=== PATIENT | female | born 1990 | race Caucasian/White ===

== ENCOUNTER 2017-01-26 10:05 | Emergency (ER) | payer OTHER, MEDICAID ==
[2017-01-26 10:45] VITALS: BP 111/74
--- NOTE | 2017-01-26 11:26 | EDM.PDOC ---
ED HPI GENERAL MEDICAL PROBLEM - General Chief Complaint: General Stated Complaint: CAN'T KEEP ANYTHING DOWN/PRESSURE IN HEAD Time Seen by Provider: 01/26/17 11:21 Source of Information: Reports: Patient History Limitations: Reports: No Limitations - History of Present Illness INITIAL COMMENTS - FREE TEXT/NARRATIVE: Hx of migraines. Has had several CT scans in the past. Was going to ER monthly for migraine. No pattern. Started with headache on at 2pm. Took Hydrocodone that night. Has been taking her Amitryptiline routinely. Started it in September. LMP yesterday. Vomiting since Friday. Did vomit this morning. Last ate lunch on Friday. Not taking in much fluid.Rates headache an 8 at this time. Onset: Gradual Onset Date: 01/23/17 Onset Time: 14:00 Duration: Recurring Location: Reports: Head Quality: Reports: Stabbing Severity: Severe (8) Improves with: Reports: None Worsens with: Reports: Other (light, smells) Associated Symptoms: Reports: Headaches, Nausea/Vomiting - Related Data Allergies Allergy/AdvReac Type Severity Reaction Status Date / Time diphenhydramine Allergy Tachycardia Verified 01/26/17 11:06 [From Benadryl] Home Meds: Home Meds Amitriptyline [Elavil] 01/26/17 [History] Hydrocodone/Acetaminophen [Vicodin 5-300 mg Tablet] 01/26/17 [History] Ondansetron [Zofran ODT] 01/26/17 [History] Rizatriptan [Maxalt GARMENT ALTERATION EXAMINER] 01/26/17 [History] SUMAtriptan Succinate [Imitrex] 01/26/17 [History] SUMAtriptan [Imitrex Nasal] 01/26/17 [History] Past Medical History Genitourinary History: Reports: Renal Calculus Neurological History: Reports: Migraines Social & Family History - Tobacco Use Smoking Status *Q: Never Smoker ED ROS GENERAL - Review of Systems Review Of Systems: See Below Constitutional: Reports: Chills, Fatigue HEENT: Reports: No Symptoms Respiratory: Reports: No Symptoms Cardiovascular: Reports: No Symptoms : Reports: No Symptoms, Other (LMP yesterday) Musculoskeletal: Reports: Neck Pain Skin: Reports: No Symptoms Neurological: Reports: Headache, Other (no aura this time) Psychiatric: Reports: No Symptoms ED EXAM, GENERAL - Physical Exam Exam: See Below Exam Limited By: No Limitations General Appearance: Moderate Distress (lights off in the room) Ears: Normal External Exam, Normal Canal, Hearing Grossly Normal, Normal TMs Ear Exam: Bilateral Ear: Auricle Normal, Canal Normal, TM normal Nose: Normal Inspection, Normal Mucosa, No Blood Throat/Mouth: Normal Inspection, Normal Lips, Normal Teeth, Normal Gums, Normal Oropharynx, Normal Voice, No Airway Compromise Head: Atraumatic, Normocephalic Neck: Normal Inspection, Supple, Non-Tender, Full Range of Motion Respiratory/Chest: No Respiratory Distress, Lungs Clear, Normal Breath Sounds, No Accessory Muscle Use, Chest Non-Tender Cardiovascular: Normal Peripheral Pulses, Regular Rate, Rhythm, No Edema, No Gallop, No JVD, No Murmur, No Rub GI/Abdominal: Normal Bowel Sounds, Soft, Non-Tender, No Organomegaly, No Distention, No Abnormal Bruit, No Mass Extremities: Normal Inspection, Normal Range of Motion, Non-Tender, Normal Capillary Refill, No Pedal Edema Neurological: Alert, Oriented, CN II-XII Intact, Normal Cognition, Normal Gait, Normal Reflexes, No Motor/Sensory Deficits, Other (photofobia) Psychiatric: Normal Affect, Normal Mood Skin Exam: Warm, Dry, Intact, Normal Color, No Rash Course - Vital Signs Last Recorded V/S: Last Vital Signs Temp 96.8 F 01/26/17 11:16 Pulse 77 01/26/17 11:16 Resp 16 01/26/17 11:16 BP 111/74 01/26/17 11:16 Pulse Ox 100 01/26/17 11:16 - Orders/Labs/Meds Orders: Active Orders 24 hr Category Date Time Status Sodium Chloride 0.9% [Normal Saline] 1,000 ml Med 01/26/17 11:45 Active IV .BOLUS Sodium Chloride 0.9% [Normal Saline] 1,000 ml Med 01/26/17 12:42 Active IV .BOLUS Medication Orders Sodium Chloride (Normal Saline) 1,000 mls @ 500 mls/hr IV .BOLUS AL Last Admin: 01/26/17 11:57 Dose: 500 mls/hr Sodium Chloride (Normal Saline) 1,000 mls @ 500 drops/hr IV .BOLUS ONE Stop: 01/27/17 18:41 Last Admin: 01/26/17 12:52 Dose: 500 drops/hr Meds: Medications Generic Name Dose Route Start Last Admin Trade Name Freq PRN Reason Stop Dose Admin Sodium Chloride 1,000 mls @ 500 mls/hr 01/26/17 11:45 01/26/17 11:57 Normal Saline IV 500 mls/hr .BOLUS AL Administration Sodium Chloride 1,000 mls @ 500 drops/hr 01/26/17 12:42 01/26/17 12:52 Normal Saline IV 01/27/17 18:41 500 drops/hr .BOLUS ONE Administration Discontinued Medications Generic Name Dose Route Start Last Admin Trade Name Freq PRN Reason Stop Dose Admin Hydromorphone HCl 0.5 mg 01/26/17 12:18 01/26/17 12:38 Dilaudid IVPUSH 01/26/17 12:19 0.5 mg ONETIME ONE Administration Hydromorphone HCl 0.5 mg 01/26/17 13:19 01/26/17 13:36 Dilaudid IVPUSH 01/26/17 13:20 0.5 mg ONETIME ONE Administration Hydromorphone HCl 1 mg 01/26/17 14:24 01/26/17 14:41 Dilaudid IVPUSH 01/26/17 14:25 1 mg ONETIME ONE Administration Hydroxyzine HCl 100 mg 01/26/17 14:25 01/26/17 14:40 Vistaril IM 01/26/17 14:26 100 mg ONETIME ONE Administration Ketorolac Tromethamine 30 mg 01/26/17 11:35 01/26/17 11:58 Toradol IVPUSH 01/26/17 11:36 30 mg ONETIME ONE Administration Ondansetron HCl 4 mg 01/26/17 11:35 01/26/17 11:58 Zofran IVPUSH 01/26/17 11:36 4 mg ONETIME ONE Administration Departure - Departure Time of Disposition: 15:00 Disposition: Home, Self-Care 01 Clinical Impression: Migraine aura, persistent Qualifiers: Status migrainosus presence: with status migrainosus Intractability: intractable Qualified Code(s): G43.511 - Persistent migraine aura without cerebral infarction, intractable, with status migrainosus - Discharge Information Referrals: PCP,None [Primary Care Provider] - Forms: ED Department Discharge Additional Instructions: IV NS 1000ml infused x2. Zofran 4mg IV given. Toradol 30mg IV given with little improvement in headache. Dilaudid 0.5mg IV given x2. Vistaril 100mg and final dose of Dilaudid 0.5mg finally seem to break the headache cycle. Pt to return home and resume her home meds. Increase fluids. Discussed treating all headaches at onset of symptoms. Followup with primary care if recurring headaches. - Problem List & Annotations (1) Migraine aura, persistent SNOMED Code(s): 188317808 Code(s): G43.509 - PERST MIGRN AURA W/O CEREB INFRC, NOT NTRCT, W/O STAT MIGR Status: Acute Priority: Medium Current Visit: Yes Qualifiers: Status migrainosus presence: with status migrainosus Intractability: intractable Qualified Code(s): G43.511 - Persistent migraine aura without cerebral infarction, intractable, with status migrainosus - My Orders Last 24 Hours: My Active Orders 01/26/17 11:45 Sodium Chloride 0.9% [Normal Saline] 1,000 ml IV .BOLUS 01/26/17 12:42 Sodium Chloride 0.9% [Normal Saline] 1,000 ml IV .BOLUS - Assessment/Plan Last 24 Hours: My Active Orders 01/26/17 11:45 Sodium Chloride 0.9% [Normal Saline] 1,000 ml IV .BOLUS 01/26/17 12:42 Sodium Chloride 0.9% [Normal Saline] 1,000 ml IV .BOLUS
[2017-01-26] MEDS ORDERED: Ondansetron 4 MG/2 ML SDV IVPUSH ONE (11:35)
[2017-01-26] MEDS ORDERED: Ketorolac 30 MG/ML SDV IVPUSH ONE (11:35)
[2017-01-26] MEDS ORDERED: Sodium Chloride 0.9% 1,000 ML IV SCH (11:45)
[2017-01-26] MEDS ORDERED: HYDROmorphone 0.5 MG/0.5 ML Syringe IVPUSH ONE ×2 (12:18→13:19)
[2017-01-26] MEDS ORDERED: Sodium Chloride 0.9% 1,000 ML IV ONE (12:42)
[2017-01-26] MEDS ORDERED: HYDROmorphone 1 MG/ML Syringe IVPUSH ONE (14:24)
[2017-01-26] MEDS ORDERED: hydrOXYzine HCl 100 MG/2 ML SDV IM ONE (14:25)
== END 2017-01-26 16:12 | disposition home or self-care (01) ==
LOC: JP.ED 10:05
DX: G43.511 Persistent migraine aura without cerebral infarction, intractable, with status migrainosus (principal); Z79.899 Other long term (current) drug therapy; Z88.8 Allergy status to other drugs, medicaments and biological substances
CPT/HCPCS: 96361; 96374; 96375; 96376; 99283; J1170; J1885; J2405; J3410; J7040

== ENCOUNTER 2017-03-08 14:18 | Emergency (ER) | payer OTHER, MEDICAID ==
[2017-03-08] MEDS ORDERED: Ibuprofen 600 MG Tab PO ONE (15:15)
[2017-03-08] MEDS ORDERED: Acetaminophen/HYDROcodone 325-5 MG Tab PO ONE (15:15)
[2017-03-08] MEDS ORDERED: LORazepam 2 MG/ML MDV IVPUSH ONE (17:39)
[2017-03-08] MEDS: Dexamethasone 4 MG/ML SDV IVPUSH ONE ×2 (17:48→17:53)
[2017-03-08] MEDS ORDERED: Sodium Chloride 0.9% 10 ML Syringe FLUSH PRN (17:57)
[2017-03-08] MEDS ORDERED: Sodium Chloride 0.9% 1,000 ML IV SCH (18:00)
--- NOTE | 2017-03-08 19:36 | EDM.PDOC ---
ED HPI GENERAL MEDICAL PROBLEM - General Chief Complaint: Abdominal Pain Stated Complaint: ABDOMINAL PAIN Time Seen by Provider: 03/08/17 15:00 Source of Information: Reports: Patient History Limitations: Reports: No Limitations - History of Present Illness INITIAL COMMENTS - FREE TEXT/NARRATIVE: Eri is a 18-year-old female with a history of migraine headaches who presents to the emergency department today with sudden onset of left pelvic pain. Patient has not taken anything for the pain, she reports mild discomfort with urination. Patient denies any vaginal discharge or concern for STDs. Patient denies any history of pain like this in the past, she does endorse a history of kidney stones which she has never passed one. Patient denies any history of ovarian cysts. She reports that walking around helps to ease the pain or take her mind off of it. Patient does endorse mild nausea, she denies any vomiting or diarrhea. Patient denies any hematochezia. Patient states her last menstrual cycle was last week. Onset: Today, Sudden Left Pelvic Pain Score (Numeric/FACES): 2 - Related Data Allergies Allergy/AdvReac Type Severity Reaction Status Date / Time diphenhydramine Allergy Tachycardia Verified 03/08/17 14:43 [From Benadryl] Home Meds: Home Meds Amitriptyline [Elavil] 25 mg PO BEDTIME 01/26/17 [History] Hydrocodone/Acetaminophen [Vicodin 5-300 mg Tablet] 1 tab PO ASDIRECTED PRN [History] Ondansetron [Zofran ODT] 4 mg PO ASDIRECTED PRN 01/26/17 [History] Rizatriptan [Maxalt PATHOLOGY TEACHER] 10 mg BUCCAL ASDIRECTED PRN 01/26/17 [History] SUMAtriptan Succinate [Imitrex] 100 mg PO ASDIRECTED PRN 01/26/17 [History] SUMAtriptan [Imitrex Nasal] 20 mg NASRT ASDIRECTED PRN 01/26/17 [History] Ketorolac [Toradol] 10 mg PO ASDIRECTED 03/08/17 [History] Past Medical History Genitourinary History: Reports: Renal Calculus MOTHER HELPER History: Reports: Neurological History: Reports: Migraines Social & Family History - Tobacco Use Smoking Status *Q: Never Smoker - Caffeine Use Caffeine Use: Reports: Energy Drinks - Recreational Drug Use Recreational Drug Use: No ED ROS GENERAL - Review of Systems Review Of Systems: ROS reveals no pertinent complaints other than HPI. ED EXAM, GI/ABD - Physical Exam Exam: See Below Exam Limited By: No Limitations General Appearance: Alert, WD/WN, Anxious, Mild Distress Throat/Mouth: Normal Inspection, Normal Oropharynx Head: Atraumatic Neck: Normal Inspection Respiratory/Chest: No Respiratory Distress, Lungs Clear, Normal Breath Sounds Cardiovascular: Normal Peripheral Pulses, No Murmur, Tachycardia GI/Abdominal Exam: Normal Bowel Sounds, Soft, Other (left pelvic tenderness) (Female) Exam: Other (no CVA tenderness on exam) Back Exam: Normal Inspection Extremities: Normal Inspection Neurological: Alert, Oriented, CN II-XII Intact Psychiatric: Normal Affect, Anxious Skin Exam: Warm, Dry, Intact Course - Vital Signs Last Recorded V/S: Last Vital Signs Temp 36.5 C 03/08/17 19:15 Pulse 92 03/08/17 19:15 Resp 16 03/08/17 19:15 BP 115/76 03/08/17 19:15 Pulse Ox 98 03/08/17 19:15 Eri is a 26-year-old female sitting on the bed in mild distress secondary to left pelvic pain. Patient is tender on exam, please refer to history of present illness and focused exam. Concerns for ovarian cyst versus torsion versus ureteral stone. Less likely would be diverticulitis. Blood work was obtained, patient was given ibuprofen and [place] for pain with improvement in her symptoms.urinalysis was obtained, this is negative for infection, test is negative. Blood work reveals a normal white count and hemoglobin, comprehensive metabolic panel is unremarkable. Pelvic ultrasound was obtained which is negative for torsion or cyst or any other acute findings per technical assoc report. CT scan was ordered to rule out ureteral stone, prior to going to CT scan, patient developed unilateral numbness/tingling in her face , right arm and leg as well as symptoms consistent with an anxiety attack included tachypnea and tachycardia. Patient developed an acute migraine headache at that time as well. Peripheral IV was established, patient was given a liter of normal saline and 1 mg of Ativan with 10 of Decadron with vast improvement in her symptoms. CT scan was obtained and is negative for any acute findings other than trace free fluid in patient's pelvis. Headache is currently a 3 out of 10, I will give her 1 dose of Dilaudid prior to discharge but feels she is stable to be discharged home with close follow-up. Patient can take ibuprofen scheduled, 600 mg, every 6 hours for her pelvic pain. I would like her seen in clinic early this next week and reasons to return to the emergency department were discussed in detail. Given the free fluid in the pelvis, patient may have had a recent ruptured cyst that is causing her discomfort today. Patient was discharged in stable condition with her friend driving. - Orders/Labs/Meds Orders: Active Orders 24 hr Category Date Time Status Peripheral IV Care [RC] . DIRECTED Care 03/08/17 17:57 Active Abdomen Pelvis wo Cont [CT] Stat Exams 03/08/17 16:31 Taken Pelvis Non OB Comp [US] Stat Exams 03/08/17 15:15 Taken Sodium Chloride 0.9% [Normal Saline] 1,000 ml Med 03/08/17 18:00 Active IV ASDIRECTED Sodium Chloride 0.9% [Saline Flush] Med 03/08/17 17:57 Active 10 ml FLUSH ASDIRECTED PRN Peripheral IV Insertion Adult [OM.PC] Routine Oth 03/08/17 17:57 Ordered Medication Orders Sodium Chloride (Normal Saline) 1,000 mls @ 999 mls/hr IV ASDIRECTED AL Sodium Chloride (Saline Flush) 10 ml FLUSH ASDIRECTED PRN PRN Reason: Keep Vein Open Labs: Laboratory Tests 03/08/17 03/08/17 03/08/17 Range/Units 15:17 15:17 15:25 WBC 8.1 (4.5-11.0) K/uL RBC 4.30 (3.30-5.50) M/uL Hgb 13.2 (12.0-15.0) g/dL Hct 39.4 (36.0-48.0) % MCV 92 (80-98) fL MCH 31 (27-31) pg MCHC 34 (32-36) % Plt Count 280 (150-400) K/uL Neut % (Auto) 66 (36-66) % Lymph % (Auto) 25 (24-44) % [place] % (Auto) 8 H (2-6) % Eos % (Auto) 1 L (2-4) % Baso % (Auto) 1 (0-1) % Sodium (140-148) mmol/L Potassium (3.6-5.2) mmol/L Chloride (100-108) mmol/L Carbon Dioxide (21-32) mmol/L Anion Gap (5.0-14.0) mmol/L BUN (7-18) mg/dL Creatinine (0.6-1.0) mg/dL Est Cr Clr Drug Dosing mL/min Estimated GFR (MDRD) (>60) Glucose (74-106) mg/dL Calcium (8.5-10.1) mg/dL Total Bilirubin (0.2-1.0) mg/dL AST (15-37) U/L ALT (12-78) U/L Alkaline Phosphatase (46-116) U/L Total Protein (6.4-8.2) g/dL Albumin (3.4-5.0) g/dL Globulin (2.3-3.5) g/dL Albumin/Globulin Ratio (1.2-2.2) Urine Color Yellow Urine Appearance Clear Urine pH 5.0 (4.5-8.0) Ur Specific [place] 1.025 (1.008-1.030) Urine Protein Negative (NEGATIVE) mg/dL Urine Glucose (UA) Normal (NEGATIVE) mg/dL Urine Ketones Negative (NEGATIVE) mg/dL Urine Occult Blood Negative (NEGATIVE) Urine Nitrite Negative (NEGATIVE) Urine Bilirubin Negative (NEGATIVE) Urine Urobilinogen Normal (NORMAL) mg/dL Ur Leukocyte Esterase Negative (NEGATIVE) Urine RBC Not seen (0-5) Urine WBC 0-5 (0-5) Ur Epithelial Cells Moderate Amorphous Sediment Not seen Urine Bacteria Moderate Urine Mucus Not seen Urine HCG, Qual Negative 03/08/17 Range/Units 15:25 WBC (4.5-11.0) K/uL RBC (3.30-5.50) M/uL Hgb (12.0-15.0) g/dL Hct (36.0-48.0) % MCV (80-98) fL MCH (27-31) pg MCHC (32-36) % Plt Count (150-400) K/uL Neut % (Auto) (36-66) % Lymph % (Auto) (24-44) % [place] % (Auto) (2-6) % Eos % (Auto) (2-4) % Baso % (Auto) (0-1) % Sodium 142 (140-148) mmol/L Potassium 3.9 (3.6-5.2) mmol/L Chloride 103 (100-108) mmol/L Carbon Dioxide 27 (21-32) mmol/L Anion Gap 11.6 (5.0-14.0) mmol/L BUN 13 (7-18) mg/dL Creatinine 0.8 (0.6-1.0) mg/dL Est Cr Clr Drug Dosing 101.81 mL/min Estimated GFR (MDRD) > 60 (>60) Glucose 91 (74-106) mg/dL Calcium 8.6 (8.5-10.1) mg/dL Total Bilirubin 0.4 (0.2-1.0) mg/dL AST 13 L (15-37) U/L ALT 19 (12-78) U/L Alkaline Phosphatase 61 (46-116) U/L Total Protein 6.7 (6.4-8.2) g/dL Albumin 3.9 (3.4-5.0) g/dL Globulin 2.8 (2.3-3.5) g/dL Albumin/Globulin Ratio 1.4 (1.2-2.2) Urine Color Urine Appearance Urine pH (4.5-8.0) Ur Specific [place] (1.008-1.030) Urine Protein (NEGATIVE) mg/dL Urine Glucose (UA) (NEGATIVE) mg/dL Urine Ketones (NEGATIVE) mg/dL Urine Occult Blood (NEGATIVE) Urine Nitrite (NEGATIVE) Urine Bilirubin (NEGATIVE) Urine Urobilinogen (NORMAL) mg/dL Ur Leukocyte Esterase (NEGATIVE) Urine RBC (0-5) Urine WBC (0-5) Ur Epithelial Cells Amorphous Sediment Urine Bacteria Urine Mucus Urine HCG, Qual Meds: Medications Generic Name Dose Route Start Last Admin Trade Name Freq PRN Reason Stop Dose Admin Sodium Chloride 1,000 mls @ 999 mls/hr 03/08/17 18:00 Normal Saline IV ASDIRECTED AL Sodium Chloride 10 ml 03/08/17 17:57 Saline Flush FLUSH ASDIRECTED PRN Keep Vein Open Discontinued Medications Generic Name Dose Route Start Last Admin Trade Name Freq PRN Reason Stop Dose Admin Hydrocodone Bitart/Acetaminophen 1 tab 03/08/17 15:15 03/08/17 16:27 [place] 325-5 Mg PO 09/30/17 15:16 1 tab ONETIME ONE Administration Dexamethasone 10 mg 03/08/17 17:40 03/08/17 17:53 Dexamethasone IVPUSH 03/08/17 17:41 10 mg ONETIME ONE Administration Ibuprofen 600 mg 03/08/17 15:15 03/08/17 16:28 Motrin PO 03/08/17 15:16 600 mg ONETIME ONE Administration Lorazepam 1 mg 03/08/17 17:39 03/08/17 17:48 Ativan IVPUSH 03/08/17 17:40 1 mg ONETIME ONE Administration Departure - Departure Time of Disposition: 20:00 Disposition: Home, Self-Care 01 Condition: Good Clinical Impression: Pelvic pain, Free fluid in pelvis - Discharge Information Instructions: Pelvic Pain, Female, [id number] Referrals: PCP,None [Primary Care Provider] - Forms: ED Department Discharge Additional Instructions: Eri, please stay well-hydrated. I would like you to take ibuprofen scheduled, 600 mg, every 6 hours for the next 2 days. I would like you to follow up with her primary care provider early this next week. If you develop any worsening symptoms or concerns please return to the emergency department. - My Orders Last 24 Hours: My Active Orders 03/08/17 15:15 Pelvis Non OB Comp [US] Stat 03/08/17 16:31 Abdomen Pelvis wo Cont [CT] Stat 03/08/17 17:57 Peripheral IV Care [RC] . DIRECTED Sodium Chloride 0.9% [Saline Flush] 10 ml FLUSH ASDIRECTED PRN Peripheral IV Insertion Adult [OM.PC] Routine 03/08/17 18:00 Sodium Chloride 0.9% [Normal Saline] 1,000 ml IV ASDIRECTED - Assessment/Plan Last 24 Hours: My Active Orders 03/08/17 15:15 Pelvis Non OB Comp [US] Stat 03/08/17 16:31 Abdomen Pelvis wo Cont [CT] Stat 03/08/17 17:57 Peripheral IV Care [RC] . DIRECTED Sodium Chloride 0.9% [Saline Flush] 10 ml FLUSH ASDIRECTED PRN Peripheral IV Insertion Adult [OM.PC] Routine 03/08/17 18:00 Sodium Chloride 0.9% [Normal Saline] 1,000 ml IV ASDIRECTED
[2017-03-08] MEDS ORDERED: HYDROmorphone 0.5 MG/0.5 ML Syringe IVPUSH ONE (19:39)
[2017-03-08 19:53] VITALS: BP 113/68
== END 2017-03-08 19:55 | disposition home or self-care (01) ==
LOC: JP.ED 14:18
DX: R10.2 Pelvic and perineal pain (principal); N94.89 Other specified conditions associated with female genital organs and menstrual cycle; Z87.442 Personal history of urinary calculi; Z88.8 Allergy status to other drugs, medicaments and biological substances
CPT/HCPCS: 36415; 74176; 76856; 80053; 81001; 81025; 85025; 96361; 96374; 96375; 99284; A9270; J1100; J1170; J2060; J7040